=== PATIENT | female | born 1960 | race Caucasian/White ===

== ENCOUNTER 2017-01-23 14:54 | Emergency (ER) | payer OTHER ==
[~2017-01-23] VITALS: Ht 157.5 cm; Wt 63.0 kg
[~2017-01-23 14:54] MED LIST: ASPI81TA82 PO; OMEP20TA39 PO; PLAV75TA PO; ZOCO40TA PO
[2017-01-23 15:01] VITALS: BP 135/72; PULSE 76; RESP 16; TEMP 99; O2SAT 97
[2017-01-23] MEDS ORDERED: TETANUS/DIPHTHERIA TOXOID ADULT 0.5 ML VIAL IM ONE (15:15)
[2017-01-23] MEDS ORDERED: IBUPROFEN 600 MG TAB PO ONE (15:15)
[2017-01-23] MEDS ORDERED: SIMV40TA PO (15:19)
[2017-01-23] MEDS ORDERED: ASPI81CH CHEW (15:19)
[2017-01-23] MEDS ORDERED: METO25TA6 PO (15:19)
[2017-01-23] MEDS ORDERED: FURO20TA PO (15:19)
[2017-01-23] MEDS ORDERED: OMEP40CA2 PO (15:19)
[2017-01-23] MEDS ORDERED: POTA10CA PO (15:19)
[2017-01-23] MEDS ORDERED: CARV6.252 PO (15:19)
--- NOTE | 2017-01-23 15:19 | PD ---
HPI Chief Complaint: Laceration/Skin Injury Time Seen by Provider: 15:06 Travel History International Travel<30 days: No Contact w/Intl Traveler<30days: No Traveled to known affect area: No History of Present Illness HPI 56-year-old female with history of CAD status/P CABG presents to the ED for evaluation of puncture wound of the right foot. Sustained approximately 2 hours before arrival. Patient states that she stepped on a monica nail, through her flip-flop. She endorses localized pain around the puncture wound. She denies numbness, tingling, weakness, limitations to range of motion of the extremity. She washed the wound before arrival. She states that last tetanus immunization was greater than 5 years ago. PFSH Past Medical History Hx Anticoagulant Therapy: Yes Autoimmune Disease: No Blood Disorders: Yes (POLYCYTHEMIA ) Cancer: No Cardiovascular Problems: Yes (HEART SURGERY) High Cholesterol: Yes Cerebrovascular Accident: Yes (TIA) Diminished Hearing: No Endocrine: No GERD: Yes Genitourinary: No Immune Disorder: No Musculoskeletal: No Neurologic: Yes Psychiatric: No Reproductive: No Respiratory: Yes ("SCAR ON LUNG FROM PNEUMONIA") Immunizations Current: No Pneumonia: Yes Menopausal: Yes Past Surgical History Section: Yes (X2) Gynecologic Surgery: Yes ( X 2 ) Social History Alcohol Use: No Tobacco Use: No Substance Use: Yes Allergies-Medications (Allergen,Severity, Reaction): Coded Allergies: No Known Allergies (Unverified , 01/23/17) Reported Meds & Prescriptions Reported Meds & Active Scripts Active Cipro (Ciprofloxacin HCl) 500 Mg Tab 500 Mg PO BID 5 Days Keflex (Cephalexin) 500 Mg Cap 500 Mg PO Q6H 7 Days Reported Omeprazole 40 Mg Cap 40 Mg PO DAILY Aspirin 81 Mg Chew 81 Mg CHEW DAILY Carvedilol 6.25 Mg Tab 6.25 Mg PO BID Simvastatin 40 Mg Tab 40 Mg PO HS Potassium Chloride ER (Potassium Chloride) 10 Meq Cap 10 Meq PO DAILY Furosemide 20 Mg Tab 20 Mg PO DAILY Metoprolol Succinate ER 24 HR (Metoprolol Succinate) 25 Mg Tab 25 Mg PO DAILY Review of Systems Except as stated in HPI: all other systems reviewed are Neg Physical Exam Narrative GENERAL: Well-nourished, well-developed patient. SKIN: Focused skin assessment warm/dry. HEAD: Normocephalic. EYES: No scleral icterus. No injection or drainage. NECK: Supple, trachea midline. No JVD or lymphadenopathy. CARDIOVASCULAR: Regular rate and rhythm without murmurs, gallops, or rubs. RESPIRATORY: Breath sounds equal bilaterally. No accessory muscle use. GASTROINTESTINAL: Abdomen soft, non-tender, nondistended. MUSCULOSKELETAL: No cyanosis, or edema. FOCUSED RIGHT LOWER EXTREMITY EXAM: 2+ DP pulse. There is a single puncture wound on the lateral aspect of the plantar surface of the right forefoot. Localized tenderness. No cellulitic streaking. No limitations to range of motion. Neurovascularly intact. BACK: Nontender without obvious deformity. No CVA tenderness. Data Data Last Documented VS Vital Signs Date Time Temp Pulse Resp B/P (MAP) Pulse Ox O2 Delivery O2 Flow Rate FiO2 01/23/17 15:01 99.0 76 16 135/72 (93) 97 Orders Orders Tetanus/Diphtheria Tox Adult (Tetanus/Di (01/23/17 15:15) Ibuprofen (Motrin) (01/23/17 15:15) Foot, Limited (2vws) (01/23/17 15:09) MDM Medical Decision Making Medical Screen Exam Complete: Yes Emergency Medical Condition: Yes Differential Diagnosis Puncture versus laceration versus retained foreign body versus need for tetanus immunization versus other Narrative Course 56-year-old female with history of CAD status/P CABG presents to the ED for evaluation of puncture wound of the right foot. The patient stepped on a monica nail while wearing her flip-flops 2 hours ago. She endorses localized pain. She denies numbness, tingling, weakness, limitations to ROM. States last tetanus immunization greater than 5 years ago. Vitals reviewed. Physical exam reveals a puncture wound on the plantar aspect of the right forefoot. Mildly tender to palpation. No cellulitic streaking. No limitations to our ON. Palpable DP pulse with good cap refill. The wound was soaked in a basin of Betadine and water. The patient's tetanus immunization was updated. X-rays reveal no metallic foreign body by my read. This is puncture wound of the foot. This is puncture wound of the foot. Prophylactic antibiotics are appropriate in this case. The patient was prescribed a course of Cipro and Keflex. She is instructed to take the antibiotics as prescribed, return for worsening symptoms, otherwise follow up with the primary care provider. We discussed proper wound care, signs of infection. Patient is stable and discharged home. Diagnosis Primary Impression: Puncture wound of right foot excluding toes without complication Qualified Codes: S91.331A - Puncture wound without foreign body, right foot, initial encounter Additional Impressions: Need for prophylactic vaccination with tetanus-diphtheria (TD) Tetanus-diphtheria (Td) vaccination Referrals: Primary Care Physician Patient Instructions: General Instructions, Puncture Wound (ED) Additional Instructions: Rest, hydrate. Keep the wound clean, dry and covered. You may bathe normally. Do not submerge the wound. After bathing pat of wound dry. Allow the wound to air dry for 10-15 minutes. Apply a thin layer of antibiotic ointment and a clean, dry dressing. Take the antibiotics as they are prescribed, even if your symptoms resolve. Utilize [id number] pain medications, as described on the label, as needed. Return to the ED should signs of infection such as redness, warmth, swelling, pus discharge occur. Follow-up with your primary care provider. Return to the ED for any urgent or emergent medical condition. Med/Other Pt SpecificInfo: Prescription(s) given Scripts Ciprofloxacin (Cipro) 500 Mg Tab 500 MG PO BID for Infection for 5 Days, #10 TAB 0 Refills Prov: Mel Graham MD 01/23/17 Cephalexin (Keflex) 500 Mg Cap 500 MG PO Q6H for Infection for 7 Days, #28 CAP 0 Refills Prov: Mel Graham MD 01/23/17 Disposition: 01 DISCHARGE HOME Condition: Stable Laisha Hinton Jan 23, 2017 15:19
[2017-01-23] MEDS ORDERED: CEPH-460 PO (15:30)
[2017-01-23] MEDS ORDERED: CIPR-9 PO (15:30)
--- NOTE | 2017-01-23 16:22 | RADRPT ---
EXAM DATE/TIME: 01/23/2017 15:25 [facility] COMPARISON: No previous studies available for comparison. INDICATIONS : Stepped on a nail this afternoon. Pain in lateral aspect of foot. MEDICAL HISTORY : 2 transient ischemic attacks SURGICAL HISTORY : Cardiac bypass x 4 ENCOUNTER: Initial ACUITY: 1 day PAIN SCORE: 9/10 LOCATION: Right Foot FINDINGS: Two view examination of the right foot demonstrates soft tissue swelling went out dislocation, or fra cture. The calcaneus is intact. Bony mineralization is normal. CONCLUSION: Soft tissue swelling without fracture. Que Alford MD on January 23, 2017 at 16:20 Board Certified Radiologist. This report was verified electronically.
== END 2017-01-23 15:49 | disposition home or self-care (01) ==
LOC: PHEFT 14:54
DX: S91.331A Puncture wound without foreign body, right foot, initial encounter (principal); Z23 Encounter for immunization; W45.0XXA Nail entering through skin, initial encounter; Z79.01 Long term (current) use of anticoagulants; D75.1 Secondary polycythemia; E78.00 Pure hypercholesterolemia, unspecified; Z86.73 Personal history of transient ischemic attack (TIA), and cerebral infarction without residual deficits; K21.9 Gastro-esophageal reflux disease without esophagitis
CPT/HCPCS: 73620; 90471; 90714